=== PATIENT | female | born 1995 | race Caucasian/White ===

== ENCOUNTER 2021-05-02 16:33 | Inpatient (IN) | payer OTHER ==
[~2021-05-02] VITALS: Ht 152.4 cm; Wt 60.8 kg
[~2021-05-02 16:33] MED LIST: REMICADE IV; STELARA90 MG/1 ML
[2021-05-05] MEDS ORDERED: INFLIXIMAB100 MG IV (10:27)
== END 2021-05-08 17:47 | disposition home or self-care (01) | DRG 747 ==
LOC: OB/GYN 05-05 07:39 → O/R 05-05 07:39 → SURH 05-05 10:30 → OB/GYN 05-05 17:30
PROVIDERS: ADMIT Specialist; ATTEND Specialist
PROC: 0UQGXZZ Repair Vagina, External Approach (ICD-10-PCS; 2021-05-05)
PROC: 0UTMXZZ Resection of Vulva, External Approach (ICD-10-PCS; principal; 2021-05-05 10:30)
DX: N76.2 Acute vulvitis (principal); Z20.822 Contact with and (suspected) exposure to COVID-19